=== PATIENT | male | born 2000 | race Caucasian/White ===

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

== ENCOUNTER → 2022-11-05 | Outpatient (REF) | payer OTHER, BC | LOC: M LAB REF 16:59 | PROVIDERS: ATTEND Physician Assistant | DX: J06.9 Acute upper respiratory infection, unspecified (principal) ==

== ENCOUNTER → 2022-12-12 | Outpatient (REF) | payer OTHER, BC ==
[2022-12-12 21:08] LABS: GC DNA AMPLIFICATION NEGATIVE (NEGATIVE)
== END ==
LOC: M LAB REF 16:53
PROVIDERS: ATTEND Physician Assistant
DX: Z00.00 Encounter for general adult medical examination without abnormal findings (principal)

== ENCOUNTER → 2023-09-04 | Outpatient (REF) | payer OTHER, BC ==
[2023-09-04 19:59] LABS: GC DNA AMPLIFICATION NEGATIVE (NEGATIVE)
== END ==
LOC: M LAB REF 16:48
PROVIDERS: ATTEND Pediatrics
DX: Z00.00 Encounter for general adult medical examination without abnormal findings (principal)